=== PATIENT | male | born 1965 | race Caucasian/White ===

== ENCOUNTER 2023-09-04 15:14 | Emergency (ER) | payer BC, SELFPAY ==
[2023-09-04] VITALS (8 sets, daily range): BP systolic 154–171; BP diastolic 89–108; PULSE 64–71
[2023-09-04 15:42] LABS: % Basophils 0.4 % (0-2); % Eosinophils 1.1 % (0-6); % Immature Granulocytes 0.2 % (0-0.5); % Lymphocytes 33.6 % (20.5-51.1); % Monocytes 12.9 % (1.7-9.3); % Neutrophils 51.8 % (42.2-75.2); Absolute Eosinophils 0.1 10^3/uL (0-0.7); Absolute Lymphocytes 1.8 10^3/uL (1.2-3.4); Absolute Monocytes 0.7 10^3/uL (0.1-0.6); Absolute Neutrophils 2.7 10^3/uL (1.4-6.5); Hematocrit 42.8 % (39.0-52.0); Hemoglobin 15.4 g/dL (13.0-18.0); Mean Corpuscular Hgb 30.2 pg (27.0-31.0); Mean Corpuscular Volume 83.9 fL (80.0-94.0); Mean Platelet Volume 9.7 fL (7.4-10.4); Nucleated Red Blood Cells % 0 % (-); Platelet Count 215 10^3/uL (130-400); Red Cell Dist. Width 11.9 % (11.5-14.5); White Blood Cell Count 5.3 10^3/uL (4.8-10.8)
[2023-09-04 15:54] LABS: ALT (SGPT) 29 U/L (0-50); AST (SGOT) 30 U/L (17-59); Albumin 3.4 g/dl (3.5-5.0); Alkaline Phosphatase 64 U/L (38-126); Blood Urea Nitrogen 14 mg/dl (9-20); Calcium 8.8 mg/dl (8.4-10.2); Carbon Dioxide 29 mmol/L (22-30); Chloride 101 mmol/L (98-107); Glucose 147 mg/dl (70-99); Sodium 138 mmol/L (135-145); Total Bilirubin 0.8 mg/dl (0.2-1.3); Total Protein 5.8 g/dl (6.3-8.2); eGFR > 60.00
[2023-09-04 15:58] LABS: Potassium 2.9 mmol/L (3.5-5.1)
[2023-09-04 17:39] LABS: Magnesium 1.9 mg/dl (1.6-2.3)
[2023-09-04] MEDS: NSS 1000 IV (17:53)
[2023-09-04] MEDS: KCL 40 MEQ PO ×2 (19:12→19:36)
--- NOTE | 2023-09-04 19:18 | ED.GENMED ---
History of Present Illness
General
Chief Complaint: Heart Rate Problem
Source: patient and spouse
Exam Limitations: none
Time Seen by Provider: 09/04/23 17:12
Travel History
Have you had any contact with someone who has COVID-19?: No
Do you have any symptoms of coronavirus? Fever > 100 degrees, chills, cough, shortness of breath, sore throat, loss of taste or smell, muscle aches, or headache?: No
History of Present Illness
History of Present Illness:
57yo male who presents for evaluation of his heart rate going up when he stands up or tries to walk. he states on saturday he had a GI bug. was vomiting excessively. That is since resolved. His did give him a small dose of metoprolol due to
his heart rate picking up when he walked. He denies shortness of breath. No leg swelling. No chest pain
Past History
Past History
ED Past Medical History: HTN, Hypercholesterolemia, Psychiatric (Anxiety) and Other (kidney stone , Migraine)
ED Past Surgical History: Cholecystectomy, Orthopedic (Right knee surgery), Urological (lithotripsy) and Other (kidney stone, parathyroidectomy)
Social History
Tobacco: Non-smoker
Alcohol: None
Drug: None
Personal:
Living: with family
Employment: Employed
Family History
Family History: Hypertension; Negative CAD
Phy Exam
Physical Exam
Physical Exam:
CONSTITUTIONAL Patient alert and oriented to person, place and time. Well-appearing. Vital signs reviewed.
HEAD atraumatic, normocephalic.
EYES eyelids normal to inspection, Pupils equally round and reactive to light, Extraocular muscles intact, Conjunctiva normal, Sclera normal.
NECK normal range of motion, Trachea midline, no jugular venous distention.
RESPIRATORY CHEST No respiratory distress noted, Chest expansion equal, Bilateral breath sounds clear.
CARDIOVASCULAR regular rate and rhythm, Heart sounds normal.
ABDOMEN abdomen nontender, Bowel sounds normal. No distention.
BACK normal inspection, no obvious deformities
UPPER EXTREMITY range of motion normal, Motor strength normal, no cyanosis, no edema.
LOWER EXTREMITY range of motion normal, Motor strength normal, no cyanosis, no edema.
NEURO Speech normal, No focal motor deficits, [place] coma scale 15, Memory normal, Cranial Nerves intact to screening exam.
SKIN skin warm, dry, and normal in color.
PSYCHIATRIC patient oriented to person place and time, Normal affect.
Course
Orders/Labs/Results
Orders:
Orders
09/04/23 15:32
CMP [Comprehensive Metabolic Panel] Urgent
Complete Blood Count/With Diff Urgent
Magnesium Urgent
09/04/23 16:44
ECG [Electrocardiogram (*1)] Urgent
Reason for Study: Palpitations
EKG- Treatment ONCE
09/04/23 17:02
Add On- LAB Stat
Tests Added?: Mg
09/04/23 17:43
Orthostatic VS- Treatment ONCE
0.9% Sodium Chloride 1000 ml [Nss] 1,000 ml IV BOLUS
09/04/23 18:48
Potassium Chloride [KCl] 40 meq PO NOW STA
Abnormal Lab Results
09/04/23
15:32
Absolute Monos (auto) 0.7 H 10^3/uL
(0.1-0.6)
Monocytes % 12.9 H %
(1.7-9.3)
Potassium 2.9 L mmol/L
(3.5-5.1)
Glucose 147 H mg/dl
(70-99)
Total Protein 5.8 L g/dl
(6.3-8.2)
Albumin 3.4 L g/dl
(3.5-5.0)
09/04/23 15:32
09/04/23 15:32
Vital Signs
Initial and Last Documented VS:
Initial Vital Signs
Temp Pulse Resp BP Pulse Ox
97.8 F 83 18 156/108 97
09/04/23 15:19 09/04/23 15:19 09/04/23 15:19 09/04/23 15:19 09/04/23 15:19
Last Documented Vital Signs
Temp Pulse Resp BP Pulse Ox
97.8 F 65 11 167/93 97
09/04/23 15:19 09/04/23 19:00 09/04/23 19:00 09/04/23 19:00 09/04/23 19:00
MDM/Problems Addressed
MDM/Problems Addressed:
Volume contraction, hypokalemia, recent vomiting, uncontrolled hypertension
*Pulse Oximetry
Patient hypoxic: no
*EKG
Interpreted by ED Provider?: Yes
Interpretation: normal
Rate: normal
Rhythm: sinus
[place]: normal axis
Ischemia: non-specific ST changes
*Operations Leader Interpretation
Rate: normal
Interpretation: normal
Rhythm: sinus
*Critical Care Note
Total Time (30-74mins, 75-104mins- exclusive of procedures): Not Applicable
Data Reviewed
Review of Other/Old Records Reveals: Discharge Summary (Discharge summary reviewed from September 2015.)
Source: patient
Prescriptions/Medications Considered But Not Given:
Consider antiemetics the patient is no longer nauseous
Patient Management
Escalation/DeEscalation of care consider admission/obs:
Appears well. Feels better after IV fluids. Replace potassium. Okay for discharge
ED Attending Note
-
Portions of this chart may have been created with voice recognition software.� Occasional wrong word or��sound alike� substitutions may have occurred due to the inherent limitations of voice recognition software.
Discharge Plan
Departure
Patient Disposition: Home (Routine Discharge)
Date of Disposition: 09/04/23
Time of Disposition: :
Patient with high blood pressure during this ER visit?: Yes
Discharge Problem:
Fluid volume depletion, Acute hypokalemia
Instructions: Hypokalemia, Dehydration, Adult (DC), BLOOD PRESSURE
Prescriptions:
No Action
atorvastatin 40 MG tablet
40 mg PO DAILY
carvedilol [Coreg] 25 MG tablet
25 mg PO BID
alprazolam 0.5 MG tablet
0.5 mg PO TID PRN (Reason: anxiety)
pantoprazole 40 MG tablet,delayed release (DR/EC)
40 mg PO DAILY
valsartan [Diovan] 320 MG tablet
320 mg PO DAILY
potassium citrate 5 MEQ tablet extended release
10 meq PO TID
Patient Comments:
two 5meq tabs three times a day
amlodipine 5 MG tablet
5 mg PO DAILY Qty: 30 5RF
doxycycline hyclate 100 MG capsule
100 mg PO BID Qty: 20 0RF
oxycodone-acetaminophen 5 MG/325 MG tablet
1 tab PO Q4HPRN PRN (Reason: severe pain) Qty: 20 0RF
Referrals:
Shaina Quiles CRNP [Family Provider] -
Activity Restrictions/Additional Instructions:
Please take 20 mill equivalents of potassium daily for the next 1 week. Please see your doctor in follow-up in the next 3 to 5 days. Return immediately for weakness, palpitations, intractable vomiting or any other concerns. Please drink plenty of
fluids.
Interventions
Interventions:
*Risk Screen - Suicide Last Done: 09/04/23 17:03
*General Assessment Last Done: 09/04/23 17:03
*Neglect/Abuse Screening Last Done: 09/04/23 17:03
ED- Fall Risk Assessment Last Done: 09/04/23 17:03
*ED COVID-19 Vaccine History Last Done: 09/04/23 17:03
ED- Cardiac Assessment Last Done: 09/04/23 17:03
ED- Pulmonary Assessment Last Done: 09/04/23 17:03
== END 2023-09-04 20:00 | disposition home or self-care (01) ==
LOC: EMR 15:14
PROVIDERS: Emergency Medicine; EMERGENCY PHYSICIAN Emergency Medicine; FAMILY PHYSICIAN Nurse Practitioner Adult Health
DX: E86.9 Volume depletion, unspecified (principal); E87.6 Hypokalemia; I10 Essential (primary) hypertension; E78.00 Pure hypercholesterolemia, unspecified; F41.9 Anxiety disorder, unspecified; Z82.49 Family history of ischemic heart disease and other diseases of the circulatory system; Z87.442 Personal history of urinary calculi; Z90.49 Acquired absence of other specified parts of digestive tract
CPT/HCPCS: 99283; 96360; 80053; 83735; 85025; 93005